=== PATIENT | female | born 1995 | race Caucasian/White ===

== ENCOUNTER → 2017-11-09 15:03 | Outpatient (CLI) | payer OTHER, SELFPAY ==
[2017-11-09 15:26] LABS: Add Manual Diff / Slide Review NO; Basophils Percent Auto 0.5 % (0-2); Eosinophils Percent Auto 2.6 % (2-4); Hematocrit 42.5 % (36-46); Hemoglobin 14.5 g/dL (12.0-16.0); Lymphocytes Percent Auto 22.4 % (25-40); Mean Corpuscular HGB Conc 34.1 % (30-36); Mean Corpuscular Hemoglobin 27.9 PG (26-34); Mean Corpuscular Volume 81.9 fL (80-100); Monocytes Percent Auto 7.1 % (3-14); Neutrophils Absolute Auto 7300 /uL (3000-5900); Neutrophils Percent Auto 67.4 % (50-75); Platelet Count 281 X10^3/uL (150-400); Red Cell Distribution Width 14.3 % (11.6-14.8); White Blood Cell Count 10.8 X10^3/uL (4.5-11.0)
[2017-11-09 15:54] LABS: Alanine Aminotransferase 31 IU/L (9-52); Albumin Globulin Ratio 1.1 (1.0-2.8); Alkaline Phosphatase 96 U/L (38-126); Aspartate Aminotransferase 25 IU/L (14-36); Bilirubin Total 0.6 mg/dL (0.2-1.3); Bilirubin Unconjugated 0.4 mg/dL (0.0-1.1); Globulin 3.6 g/dL (1.7-4.1); HEMOLYSIS < 15 (0-50); Total Protein 7.6 g/dL (6.3-8.2)
[2017-11-09 16:24] LABS: Thyroid Stimulating Hormone 1.68 uIU/mL (0.47-4.68)
== END ==
PROVIDERS: PCP Family Medicine; Visit Provider Internal Medicine
DX: M25.532 Pain in left wrist (principal); R94.5 Abnormal results of liver function studies
CPT/HCPCS: 36415; 80076; 84443; 85025

== ENCOUNTER → 2018-05-14 16:16 | Outpatient (CLI) | payer OTHER, SELFPAY ==
--- NOTE | 2018-05-14 16:17 | DI.US.S_ITS ---
PROCEDURE: US OB <= 14 WEEKS FETUS INDICATIONS: Dating for OUTSIDE/PRIOR DATING DATA: Last menstrual period (LMP): 03/19/18. LMP-based estimated date of delivery (DAMIEN): 12/24/18. First dating scan (date and location): 05/14/18. Estimated date of delivery (DAMIEN) from first dating scan: 12/20/18. TECHNIQUE: Real-time scanning was performed of the fetus and maternal pelvic organs, with image documentation. Endovaginal scanning was also performed to better visualize the fetus and maternal ovaries. COMPARISON: None. FINDINGS: Embryo: Alleman-rump length measures 2 cm corresponding to 8 weeks 4 days. Heart rate measures 165 beats per minute. Measurement variability in dating: +/- 4 weeks by LMP, +/- 7 days by mean sac diameter (use before 6 weeks gestation if crown-rump length not able to be measured), +/- 5 days by crown-rump length (up to 8 weeks 6 days gestation), +/- 7 days by crown-rump length (up to 13 weeks 6 days gestation). Maternal organs: Ovaries normal limits, with right corpus luteal cyst measuring roughly 18 mm. Limited images through the kidneys demonstrate no hydronephrosis. IMPRESSION: 8 week 4 day single living IUP. Dictated by: Derick Horne [facility] Interpreted: Kamaljit Boggs MD on 05/14/2018 at 17:08 Approved by: Kamaljit Boggs M.D. on 05/14/2018 at 18:21
== END ==
PROVIDERS: PCP Family Medicine; Visit Provider Family Medicine
DX: Z34.91 Encounter for supervision of normal pregnancy, unspecified, first trimester (principal); Z3A.08 8 weeks gestation of pregnancy
CPT/HCPCS: 76801; 76817

== ENCOUNTER → 2018-05-30 11:04 | Outpatient (CLI) | payer OTHER, SELFPAY ==
--- NOTE | 2018-05-30 13:38 | DI.US.S_ITS ---
PROCEDURE: US OB <= 14 WEEKS FETUS INDICATIONS: failed termination OUTSIDE/PRIOR DATING DATA: Last menstrual period (LMP): 03/24/18. LMP-based estimated date of delivery (DAMIEN): 12/24/18. First dating scan (date and location): 05/14/18. Estimated date of delivery (DAMIEN) from first dating scan: 12/20/18. TECHNIQUE: Real-time scanning was performed of the fetus and maternal pelvic organs, with image documentation. Endovaginal scanning was also performed to better visualize the fetus and maternal ovaries. COMPARISON: [facility], , OB <= 14 WEEKS FETUS, 05/14/2018, 16:30. FINDINGS: Embryo: There is a single living intrauterine gestation with heart rate 153 beats per minute, and with a crown-rump length of 3.9 cm that correlates with a gestational age of 10 weeks 5 days. By first OB ultrasound current gestational age is 10 weeks 6 days and therefore there has been appropriate interval growth. Measurement variability in dating: +/- 4 weeks by LMP, +/- 7 days by mean sac diameter (use before 6 weeks gestation if crown-rump length not able to be measured), +/- 5 days by crown-rump length (up to 8 weeks 6 days gestation), +/- 7 days by crown-rump length (up to 13 weeks 6 days gestation). Maternal organs: Ovaries normal considering gestational status. Limited images through the kidneys demonstrate no hydronephrosis. IMPRESSION: Single living intrauterine gestation with appropriate interval growth and heart rate observed. Delivery date is projected to be centered on 12/20/18. Dictated by: Boris Vargas M.D. on 05/30/2018 at 16:09 Approved by: Boris Vargas M.D. on 05/30/2018 at 16:11
== END ==
PROVIDERS: PCP Family Medicine; Visit Provider Family Medicine
DX: O07.4 Failed attempted termination of pregnancy without complication (principal); Z3A.10 10 weeks gestation of pregnancy
CPT/HCPCS: 76801

== ENCOUNTER 2018-06-03 13:22 | Day surgery (SDC) | payer OTHER, SELFPAY ==
--- NOTE | 2018-06-03 | PATH_ITS ---
[facility] Accession Number: [id number] . 01 Material submitted: . PRODUCTS OF CONCEPTION . 02 Diagnosis: Products of Conception: Disrupted fetus with heel-toe length of 0.6 cm (expected for a gestational age of 10-12 weeks). Fragmented placental tissue with no diagnostic abnormailty, including no viral cytopathic effect. [facility] . 02 Electronically signed: . Aldair Bray MD, PhD, Pathologist NPI- [id number] . 01 Gross description: . Received in formalin, labeled products of conception, are multiple fragments of red-brown spongy hemorrhagic tissue (13.8 x 5.2 x 3.2 cm in aggregate) containing multiple fragmented developing parts (8 grams, 4.8 x 3.6 x 1.2 cm in aggregate) with a foot length of 0.6 cm. [employer] tissue submitted in cassettes A1-A4. ([id number]) /MRV . 02 Pathologist provided ICD-10: O04.80 . 02 CPT . 616361 Performed at: 01 [facility] [address], [place], [place] [id number] MD Ector Garcia MD Phone: [phone] Performed at: 02 [facility] [address] [place], [place] [id number] MD Sharonda Kinsey MD Phone: [phone]
[2018-06-03 13:39] VITALS: BP 102/64; PULSE 69; RESP 16; TEMP 36.6; O2SAT 98; BMI 35.7
[2018-06-03] MEDS: LACTATED RINGERS 1,000 ML 42 ML IV (13:46)
--- NOTE | 2018-06-03 14:12 | PM.PREOP ---
Pre-operative Note Interval Note History & Physical reviewed/Exam performed by Physician: Yes Changes to H&P: No
--- NOTE | 2018-06-03 14:28 | SUR.OPER ---
Lithotomy on padded OR bed, head on pillow, arms secured on padded arm boards at <90 degrees abduction. Legs secured in padded yellow fins stirrups.
--- NOTE | 2018-06-03 14:41 | PM.OP.1 ---
Operative Date/Time/Diagnoses Date of procedure: 06/03/18 Time of procedure: 14:41 Pre-op diagnosis: Incomplete Post-op diagnosis: same Procedure & Clinicians Procedure: Suction D and C Same procedure as scheduled: Yes Indications: Patient who underwent a medically induced who did not have completion of her Surgeon: Susan Hemphill Click Yes if Unassisted: Yes Anesthesia Type: General Operative Notes Findings: Moderate amount of retained products of conception Closure Type: not applicable Specimen(s): other (Uterine contents) Estimated Blood Loss (mL): 20 Blood products transfused: none Procedure in detail: Patient was brought to the operating room where she underwent general anesthesia. [facility] She was prepped and draped in the usual sterile fashion. Her bladder was drained with an in-and out catheter. A check system was reviewed with the staff in the room. Warming was with blankets and no pulsatile stockings were indicated due to the short nature of the procedure. No antibiotics were indicated. A single-tooth tenaculum was placed on the anterior lip of the cervix. The cervix was dilated to a 10. Hegar dilator. The #9 suction curette was placed into the uterus and tissue removed. A sharp curettage was performed followed by a repeat suction curettage. Adequate hemostasis was noted. The patient went to the recovery room in good condition. Counts of instruments and sponges were correct. Complications: none Condition: stable Disposition: same day surgery Plan for aftercare: Follow-up in 2 weeks
[2018-06-03 14:44] VITALS: BP 119/71; PULSE 88; RESP 16; TEMP 36.8; O2SAT 95
--- NOTE | 2018-06-03 14:45 | P.OP_ITS ---
Operative Date/Time/Diagnoses Date of procedure: 06/03/18 Time of procedure: 14:41 Pre-op diagnosis: Incomplete Post-op diagnosis: same Procedure & Clinicians Procedure: Suction D and C Same procedure as scheduled: Yes Indications: Patient who underwent a medically induced who did not have completion of her Surgeon: Susan Hemphill Click Yes if Unassisted: Yes Anesthesia Type: General Operative Notes Findings: Moderate amount of retained products of conception Closure Type: not applicable Specimen(s): other (Uterine contents) Estimated Blood Loss (mL): 20 Blood products transfused: none Procedure in detail: Patient was brought to the operating room where she underwent general anesthesia. [facility] She was prepped and draped in the usual sterile fashion. Her bladder was drained with an in-and out catheter. A check system was reviewed with the staff in the room. Warming was with blankets and no pulsatile stockings were indicated due to the short nature of the procedure. No antibiotics were indicated. A single- tooth tenaculum was placed on the anterior lip of the cervix. The cervix was dilated to a 10. Hegar dilator. The #9 suction curette was placed into the uterus and tissue removed. A sharp curettage was performed followed by a repeat suction curettage. Adequate hemostasis was noted. The patient went to the recovery room in good condition. Counts of instruments and sponges were correct. Complications: none Condition: stable Disposition: same day surgery Plan for aftercare: Follow-up in 2 weeks
[2018-06-03 14:50] VITALS: BP 124/83; PULSE 106; RESP 16; O2SAT 95
[2018-06-03 14:52] VITALS: BP 104/71; PULSE 77; RESP 17; O2SAT 95
[2018-06-03 15:14] VITALS: BP 117/71; PULSE 68; RESP 16; TEMP 36.6; O2SAT 99
== END 2018-06-03 15:24 | disposition home or self-care (01) ==
PROVIDERS: PCP Family Medicine; Visit Provider Specialist
PROC: (CPT 58120; principal; 2018-06-03 14:30)
DX: O04.89 (Induced) termination of pregnancy with other complications (principal); Z3A.10 10 weeks gestation of pregnancy
CPT/HCPCS: 59812; 88304; J1885; J2250; J2405; J2704; J3010

== ENCOUNTER → 2018-08-21 11:35 | Outpatient (CLI) | payer OTHER, SELFPAY ==
[2018-08-21 12:15] LABS: Influenza A and B by PCR Rapid Negative (Negative)
== END ==
PROVIDERS: PCP Family Medicine; Visit Provider Registered Nurse
DX: J06.9 Acute upper respiratory infection, unspecified (principal)
CPT/HCPCS: 87400

== ENCOUNTER 2018-09-11 14:51 | Emergency (ER) | payer OTHER, SELFPAY ==
[2018-09-11 15:00] VITALS: BP 114/76; PULSE 85; RESP 20; TEMP 36.6; O2SAT 98; BMI 31.6
--- NOTE | 2018-09-11 15:04 | DI.RAD.S_ITS ---
PROCEDURE: XR ANKLE RT MIN 3V INDICATIONS: injury, pain TECHNIQUE: 3 views of the ankle were acquired. COMPARISON: None. FINDINGS: Bones: No fractures or dislocations. Ankle mortise is normally aligned. No suspicious bony lesions. Soft tissues: No tibiotalar joint effusion. Achilles tendon appears normal. IMPRESSION: No fracture. No osseous lesion. If symptoms and/or clinical suspicion for pathology persists, further assessment with repeat radiographs (7-10 days) or advanced imaging (e.g. CT, MRI or bone scan) may be helpful. Dictated by: Philomena Venegas MD, PhD on 09/11/2018 at 15:37 Approved by: Philomena Venegas MD, PhD on 09/11/2018 at 15:38
--- NOTE | 2018-09-11 15:04 | DI.RAD.S_ITS ---
PROCEDURE: XR FOOT RT MIN 3V INDICATIONS: injury, pain TECHNIQUE: 3 views of the foot were acquired. COMPARISON: None. FINDINGS: Bones: No fractures or dislocations. No suspicious bony lesions. Soft tissues: No tibiotalar joint effusion. Achilles tendon appears normal. IMPRESSION: No fracture. No osseous lesion. If symptoms and/or clinical suspicion for pathology persists, further assessment with repeat radiographs (7-10 days) or advanced imaging (e.g. CT, MRI or bone scan) may be helpful. Dictated by: Philomena Venegas MD, PhD on 09/11/2018 at 15:39 Approved by: Philomena Venegas MD, PhD on 09/11/2018 at 15:40
--- NOTE | 2018-09-11 17:59 | ED.LOWEXIN ---
HPI - Extremity Injury (Lower) <Sarahi Porter PA-C - Last Filed: 09/11/18 22:19> General Chief Complaint: Extremity Injury, Lower Stated Complaint: hurt rt ankle Time Seen by Provider: 09/11/18 15:06 Source: patient Mode of arrival: wheelchair Limitations: no limitations History of Present Illness HPI Narrative: This 22-year-old female states she was the out of the store holding her daughter in 1 hand and a 12 pack of soda in the other when she started to trip and rolled her right ankle onto her foot twice. She states that she twisted this at an awkward angle, but did not fall, and has had pain since especially with trying to bear weight. She denies any pain elsewhere in the leg or any other injury. she took some ibuprofen afterwards. She denies possibility of Related Data Previous Rx's Medication Instructions Recorded ibuprofen 800 mg tablet 800 mg PO TID PRN #15 tab 05/16/18 sertraline 25 mg tablet 50 mg PO DAILY #60 tab 08/05/18 bupropion HCl 75 mg tablet 75 mg PO BID #60 tab 08/21/18 Allergies Allergy/AdvReac Type Severity Reaction Status Date / Time latex [LATEX] Allergy Mild rash Verified 08/21/18 11:08 Review of Systems <Sarahi Porter PA-C - Last Filed: 09/11/18 22:19> Review of Systems ROS Unobtainable: All systems reviewed & are unremarkable except as noted in HPI and below PFSH <Sarahi Porter PA-C - Last Filed: 09/11/18 22:19> Medical History 1 para 1 (Resolved) Normal Papanicolaou smear (Resolved) Surgical History Anesthesia (Resolved) History of third molar tooth extraction (Resolved) Family History (Updated 05/31/17 @ 00:00 by Conversion Provider) Father Age: 60 Diabetes mellitus Mother Age: 46 Bipolar disorder with depression Sister Age: 26 Bipolar 1 disorder Brother No problems noted. Social History household members: family Smoking Status: Never smoker Family History (Updated 05/31/17 @ 00:00 by Conversion Provider) Father Age: 60 Diabetes mellitus Mother Age: 46 Bipolar disorder with depression Sister Age: 26 Bipolar 1 disorder Brother No problems noted. Social History household members: family Smoking Status: Never smoker Exam <Sarahi Porter PA-C - Last Filed: 09/11/18 22:19> Narrative Exam Narrative: GENERAL APPEARANCE: Patient sitting comfortably, in no distress. LUNGS: Clear to auscultation bilaterally. HEART: Rate and rhythm regular without murmur, normal S1 and S2, no S3 or S4. MUSCULOSKELETAL: Right ankle is mildly tender over the Achilles and inferior to the lateral malleolus. Achilles is intact by palpation. full range of motion of the ankle with mild tenderness at endpoints. Exquisitely tender over all of the metatarsals, mainly mid to the distal. She is able to plantar flex and dorsiflex the toes. NEUROVASCULAR: right lower extremity sensation is grossly intact, pedal pulses intact, toes warm and pink Initial Vital Signs Initial Vital Signs: Vital Signs Temperature 97.8 F 09/11/18 15:00 Pulse Rate 85 09/11/18 15:00 Respiratory Rate 20 09/11/18 15:00 Blood Pressure 114/76 09/11/18 15:00 Pulse Oximetry 98 09/11/18 15:00 <Terry Cobos DO - Last Filed: 09/11/18 23:22> Initial Vital Signs Initial Vital Signs: Vital Signs Temperature 97.8 F 09/11/18 15:00 Pulse Rate 85 09/11/18 15:00 Respiratory Rate 20 09/11/18 15:00 Blood Pressure 114/76 09/11/18 15:00 Pulse Oximetry 98 09/11/18 15:00 Course <Sarahi Porter PA-C - Last Filed: 09/11/18 22:19> Additional Information: The patient is not able to bear weight with a cast shoe, but much more comfortable with orthopedic boot and crutches. Advised no acute findings now on x-rays but she does need to follow up with PCP next week as she may need repeat x-rays not improving. Light duty until then. She is agreeable Orders Ordered: ED Orders 09/11/18 15:04 XR ankle RT min 3V Stat XR foot RT min 3V Stat Vital Signs - 8 hr 09/11/18 18:34 Temperature 99.1 F Pulse Rate 82 Respiratory Rate 19 Blood Pressure 111/56 L Pulse Oximetry 99 <Terry Cobos DO - Last Filed: 09/11/18 23:22> Orders Ordered: ED Orders 09/11/18 15:04 XR ankle RT min 3V Stat XR foot RT min 3V Stat Vital Signs - 8 hr 09/11/18 18:34 Temperature 99.1 F Pulse Rate 82 Respiratory Rate 19 Blood Pressure 111/56 L Pulse Oximetry 99 MDM - Extremity Injury (Lower) <Sarahi Porter PA-C - Last Filed: 09/11/18 22:19> Imaging Data foot/ankle: Radiologist's impression: Ortega Ramey 22 F [address] [address] XRay Report Signed Patient: Ortega Ramey MMR#: [id number] : 1995Acct:[id number] Age/Sex: te of Service: 09/11/18 Loc: ED Accession Number: [id number] Procedure: XR ankle RT min 3V Ordering Provider: Zeinab Newell D.O. PROCEDURE: XR ANKLE RT MIN 3V INDICATIONS: injury, pain TECHNIQUE: 3 views of the ankle were acquired. COMPARISON: None. FINDINGS: Bones: No fractures or dislocations. Ankle mortise is normally aligned. No suspicious bony lesions. Soft tissues: No tibiotalar joint effusion. Achilles tendon appears normal. IMPRESSION: No fracture. No osseous lesion. If symptoms and/or clinical suspicion for pathology persists, further assessment with repeat radiographs (7-10 days) or advanced imaging (e.g. CT, MRI or bone scan) may be helpful. Dictated by: Philomena Venegas MD, PhD on 09/11/2018 at 15:37 Approved by: Philomena Venegas MD, PhD on 09/11/2018 at 15:[address] [address] XRay Report Signed Patient: Ortega Ramey MMR#: [id number] : 1995Acct:[id number] Age/Sex: / FDate of Service: 09/11/18 Loc: ED Accession Number: [id number] Procedure: XR foot RT min 3V Ordering Provider: Zeinab Newell D.O. PROCEDURE: XR FOOT RT MIN 3V INDICATIONS: injury, pain TECHNIQUE: 3 views of the foot were acquired. COMPARISON: None. FINDINGS: Bones: No fractures or dislocations. No suspicious bony lesions. Soft tissues: No tibiotalar joint effusion. Achilles tendon appears normal. IMPRESSION: No fracture. No osseous lesion. If symptoms and/or clinical suspicion for pathology persists, further assessment with repeat radiographs (7-10 days) or advanced imaging (e.g. CT, MRI or bone scan) may be helpful. Dictated by: Philomena Venegas MD, PhD on 09/11/2018 at 15:39 Approved by: Philomena Venegas MD, PhD on 09/11/2018 at 15:40 Discharge Plan Departure Patient Disposition: Home Clinical Impression: Foot sprain Qualifiers: Encounter type: initial encounter Laterality: right Qualified Code(s): S93.601A - Unspecified sprain of right foot, initial encounter Ankle sprain Qualifiers: Encounter type: initial encounter Involved ligament of ankle: unspecified ligament Laterality: right Qualified Code(s): S93.401A - Sprain of unspecified ligament of right ankle, initial encounter Discharge Date/Time: 09/11/18 18:36 Interventions: ED Discharge Assessment Last Done: 09/11/18 18:34 Instructions: DI for Ankle Sprain, DI for Foot Sprain Activity Restrictions/Additional Instructions: Please return if you have any acutely worsening symptoms. Please continue ibuprofen 800 mg every 8 hours and you can add Tylenol in addition as needed. Please wear the walking boot whenever you are bearing weight and also use the crutches as needed. Please follow up with your PCP next week. As we talked about, you may need repeat x-rays if you are not improving (sometimes broken bones do not show up on initial x-rays). Please avoid doing work that you won't be able to do on the crutches easily Prescriptions: No Action sertraline 25 mg tablet 50 mg PO DAILY Qty: 60 RF: 1 ibuprofen 800 mg tablet 800 mg PO TID PRN (Reason: pain) Qty: 15 RF: 0 bupropion HCl 75 mg tablet 75 mg PO BID Qty: 60 RF: 1 Referrals: Brianna Laws DO [Primary Care Provider] - Stand Alone Forms: Work Release Note <Terry Cobos DO - Last Filed: 09/11/18 23:22> Cosign ED Attending Cosignature Attestation: I was available for consultation during this patient's emergency department encounter
--- NOTE | 2018-09-11 18:02 | ED_ITS ---
HPI - Extremity Injury (Lower) <Sarahi Porter PA-C - Last Filed: 09/11/18 22:19> General Chief Complaint: Extremity Injury, Lower Stated Complaint: hurt rt ankle Time Seen by Provider: 09/11/18 15:06 Source: patient Mode of arrival: wheelchair Limitations: no limitations History of Present Illness HPI Narrative: This 22-year-old female states she was the out of the store holding her daughter in 1 hand and a 12 pack of soda in the other when she started to trip and rolled her right ankle onto her foot twice. She states that she twisted this at an awkward angle, but did not fall, and has had pain since especially with trying to bear weight. She denies any pain elsewhere in the leg or any other injury. she took some ibuprofen afterwards. She denies possibility of Related Data Previous Rx's Medication Instructions Recorded ibuprofen 800 mg tablet 800 mg PO TID PRN #15 tab 05/16/18 sertraline 25 mg tablet 50 mg PO DAILY #60 tab 08/05/18 bupropion HCl 75 mg tablet 75 mg PO BID #60 tab 08/21/18 Allergies Allergy/AdvReac Type Severity Reaction Status Date / Time latex [LATEX] Allergy Mild rash Verified 08/21/18 11:08 Review of Systems <Sarahi Porter PA-C - Last Filed: 09/11/18 22:19> Review of Systems ROS Unobtainable: All systems reviewed & are unremarkable except as noted in HPI and below PFSH <Sarahi Porter PA-C - Last Filed: 09/11/18 22:19> Medical History 1 para 1 (Resolved) Normal Papanicolaou smear (Resolved) Surgical History Anesthesia (Resolved) History of third molar tooth extraction (Resolved) Family History (Updated 05/31/17 @ 00:00 by Conversion Provider) Father Age: 60 Diabetes mellitus Mother Age: 46 Bipolar disorder with depression Sister Age: 26 Bipolar 1 disorder Brother No problems noted. Social History household members: family Smoking Status: Never smoker Family History (Updated 05/31/17 @ 00:00 by Conversion Provider) Father Age: 60 Diabetes mellitus Mother Age: 46 Bipolar disorder with depression Sister Age: 26 Bipolar 1 disorder Brother No problems noted. Social History household members: family Smoking Status: Never smoker Exam <Sarahi Porter PA-C - Last Filed: 09/11/18 22:19> Narrative Exam Narrative: GENERAL APPEARANCE: Patient sitting comfortably, in no distress. LUNGS: Clear to auscultation bilaterally. HEART: Rate and rhythm regular without murmur, normal S1 and S2, no S3 or S4. MUSCULOSKELETAL: Right ankle is mildly tender over the Achilles and inferior to the lateral malleolus. Achilles is intact by palpation. full range of motion of the ankle with mild tenderness at endpoints. Exquisitely tender over all of the metatarsals, mainly mid to the distal. She is able to plantar flex and dorsiflex the toes. NEUROVASCULAR: right lower extremity sensation is grossly intact, pedal pulses intact, toes warm and pink Initial Vital Signs Initial Vital Signs: Vital Signs Temperature 97.8 F 09/11/18 15:00 Pulse Rate 85 09/11/18 15:00 Respiratory Rate 20 09/11/18 15:00 Blood Pressure 114/76 09/11/18 15:00 Pulse Oximetry 98 09/11/18 15:00 <Terry Cobos DO - Last Filed: 09/11/18 23:22> Initial Vital Signs Initial Vital Signs: Vital Signs Temperature 97.8 F 09/11/18 15:00 Pulse Rate 85 09/11/18 15:00 Respiratory Rate 20 09/11/18 15:00 Blood Pressure 114/76 09/11/18 15:00 Pulse Oximetry 98 09/11/18 15:00 Course <Sarahi Porter PA-C - Last Filed: 09/11/18 22:19> Additional Information: The patient is not able to bear weight with a cast shoe, but much more comfortable with orthopedic boot and crutches. Advised no acute findings now on x-rays but she does need to follow up with PCP next week as she may need repeat x-rays not improving. Light duty until then. She is agreeable Orders Ordered: ED Orders 09/11/18 15:04 XR ankle RT min 3V Stat XR foot RT min 3V Stat Vital Signs - 8 hr 09/11/18 18:34 Temperature 99.1 F Pulse Rate 82 Respiratory Rate 19 Blood Pressure 111/56 L Pulse Oximetry 99 <Terry Cobos DO - Last Filed: 09/11/18 23:22> Orders Ordered: ED Orders 09/11/18 15:04 XR ankle RT min 3V Stat XR foot RT min 3V Stat Vital Signs - 8 hr 09/11/18 18:34 Temperature 99.1 F Pulse Rate 82 Respiratory Rate 19 Blood Pressure 111/56 L Pulse Oximetry 99 MDM - Extremity Injury (Lower) <Sarahi Porter PA-C - Last Filed: 09/11/18 22:19> Imaging Data foot/ankle: Radiologist's impression: Ortega Ramey 22 F [address] [address] XRay Report Signed Patient: Ortega Ramey MMR#: [id number] : 1995Acct:[id number] Age/Sex: te of Service: 09/11/18 Loc: ED Accession Number: [id number] Procedure: XR ankle RT min 3V Ordering Provider: Zeinab Newell D.O. PROCEDURE: XR ANKLE RT MIN 3V INDICATIONS: injury, pain TECHNIQUE: 3 views of the ankle were acquired. COMPARISON: None. FINDINGS: Bones: No fractures or dislocations. Ankle mortise is normally aligned. No suspicious bony lesions. Soft tissues: No tibiotalar joint effusion. Achilles tendon appears normal. IMPRESSION: No fracture. No osseous lesion. If symptoms and/or clinical suspicion for pathology persists, further assessment with repeat radiographs (7-10 days) or advanced imaging (e.g. CT, MRI or bone scan) may be helpful. Dictated by: Philomena Venegas MD, PhD on 09/11/2018 at 15:37 Approved by: Philomena Venegas MD, PhD on 09/11/2018 at 15:[address] [address] XRay Report Signed Patient: Ortega Ramey MMR#: [id number] : 1995Acct:[id number] Age/Sex: / FDate of Service: 09/11/18 Loc: ED Accession Number: [id number] Procedure: XR foot RT min 3V Ordering Provider: Zeinab Newell D.O. PROCEDURE: XR FOOT RT MIN 3V INDICATIONS: injury, pain TECHNIQUE: 3 views of the foot were acquired. COMPARISON: None. FINDINGS: Bones: No fractures or dislocations. No suspicious bony lesions. Soft tissues: No tibiotalar joint effusion. Achilles tendon appears normal. IMPRESSION: No fracture. No osseous lesion. If symptoms and/or clinical suspici on for pathology persists, further assessment with repeat radiographs (7-10 days) or advanced imaging (e.g. CT, MRI or bone scan) may be helpful. Dictated by: Philomena Venegas MD, PhD on 09/11/2018 at 15:39 Approved by: Philomena Venegas MD, PhD on 09/11/2018 at 15:40 Discharge Plan Departure Patient Disposition: Home Clinical Impression: Foot sprain Qualifiers: Encounter type: initial encounter Laterality: right Qualified Code(s): S93.601A - Unspecified sprain of right foot, initial encounter Ankle sprain Qualifiers: Encounter type: initial encounter Involved ligament of ankle: unspecified ligament Laterality: right Qualified Code(s): S93.401A - Sprain of unspecified ligament of right ankle, initial encounter Discharge Date/Time: 09/11/18 18:36 Interventions: ED Discharge Assessment Last Done: 09/11/18 18:34 Instructions: DI for Ankle Sprain, DI for Foot Sprain Activity Restrictions/Additional Instructions: Please return if you have any acutely worsening symptoms. Please continue ibuprofen 800 mg every 8 hours and you can add Tylenol in addition as needed. Please wear the walking boot whenever you are bearing weight and also use the crutches as needed. Please follow up with your PCP next week. As we talked about, you may need repeat x-rays if you are not improving (sometimes broken bones do not show up on initial x-rays). Please avoid doing work that you won't be able to do on the crutches easily Prescriptions: No Action sertraline 25 mg tablet 50 mg PO DAILY Qty: 60 RF: 1 ibuprofen 800 mg tablet 800 mg PO TID PRN (Reason: pain) Qty: 15 RF: 0 bupropion HCl 75 mg tablet 75 mg PO BID Qty: 60 RF: 1 Referrals: Brianna Laws DO [Primary Care Provider] - Stand Alone Forms: Work Release Note <Terry Cobos DO - Last Filed: 09/11/18 23:22> Cosign ED Attending Cosignature Attestation: I was available for consultation during this patient's emergency department encounter
[2018-09-11 18:34] VITALS: BP 111/56; PULSE 82; RESP 19; TEMP 37.3; O2SAT 99
== END 2018-09-11 18:36 | disposition home or self-care (01) ==
PROVIDERS: Emergency Provider Internal Medicine; PCP Family Medicine
DX: S93.401A Sprain of unspecified ligament of right ankle, initial encounter (principal)
CPT/HCPCS: 73610; 73630; 99283

== ENCOUNTER 2019-02-20 10:23 | Emergency (ER) | payer OTHER, SELFPAY ==
[2019-02-20 10:30] VITALS: BP 134/91; PULSE 82; RESP 18; TEMP 36.5; O2SAT 99
--- NOTE | 2019-02-20 11:22 | DI.US.S_ITS ---
PROCEDURE: US OB <= 14 WEEKS FETUS INDICATIONS: 7 WK PREG, ABD AND FLANK PAIN OUTSIDE/PRIOR DATING DATA: Last menstrual period (LMP): 01/02/2019. LMP-based estimated date of delivery (DAMIEN): 10/08/1018. First dating scan (date and location): This exam. Estimated date of delivery (DAMIEN) from first dating scan: 10/08/2019. TECHNIQUE: Real-time scanning was performed of the fetus and maternal pelvic organs, with image documentation. COMPARISON: [facility], OB <= 14 WEEKS FETUS, 05/14/2018, 16:30. FINDINGS: Embryo: There is an intrauterine gestational sac with pole. cardiac activity is present with heart rate 158 bpm. Based on the crown-rump length, the estimated gestational age is 7 weeks 1 day corresponding to DAMIEN 10/08/2019. Normal-appearing yolk sac is present. No subchorionic bleed. Cervix is closed measuring 3.2 cm long. Measurement variability in dating: +/- 4 weeks by LMP, +/- 7 days by mean sac diameter (use before 6 weeks gestation if crown-rump length not able to be measured), +/- 5 days by crown-rump length (up to 8 weeks 6 days gestation), +/- 7 days by crown-rump length (up to 13 weeks 6 days gestation). Maternal organs: Ovaries are grossly normal. Limited images through the kidneys demonstrate no hydronephrosis. IMPRESSION: 1. A single living intrauterine gestation with an estimated gestational age of 7 weeks 1 day corresponding to ultrasound DAMIEN of 10/10/2019. 2. No abnormality is seen on ultrasound. Dictated by: Valerie Chirinos M.D. on 02/20/2019 at 12:10 Approved by: Valerie Chirinos M.D. on 02/20/2019 at 12:17
--- NOTE | 2019-02-20 11:41 | ED.ABDPAIN ---
HPI - Abdominal Pain <MARCIO Roth-BC - Last Filed: 02/20/19 15:43> General Chief Complaint: Abdominal Pain Stated Complaint: pain in right side Time Seen by Provider: 02/20/19 10:52 Source: patient Mode of arrival: Ambulatory Limitations: no limitations History of Present Illness HPI narrative: The patient is a 23-year-old female nonsmoker present with a complaint of right upper quadrant pain, right. She states she she started yesterday and she had a difficulty sleeping due to this. She states that she has already had a cholecystectomy in the beginning of 2017. She denies any dysuria urgency frequency. She denies any lower abdominal cramping. She has not had an OB visit yet. She denies any fever, but complains of chills. She complains of nausea and vomiting, but states that might be due to her . Related Data Home Medications Medication Instructions Recorded Confirmed PNV cmb#95-ferrous fumarate-FA 1 tab PO DAILY 02/20/19 02/20/19 [] Vitamin B-6 1 tab PO DAILY 02/20/19 02/20/19 doxylamine succinate [Unisom 12.5 mg PO BEDTIME PRN 02/20/19 02/20/19 (doxylamine)] Previous Rx's Medication Instructions Recorded bupropion HCl 150 mg tablet,12 hr 150 mg PO DAILY #30 each 09/19/18 sustained-release sertraline 25 mg tablet 50 mg PO DAILY #180 tab 10/09/18 ondansetron 4 mg PO Q6H PRN #20 tab 02/20/19 Allergies Allergy/AdvReac Type Severity Reaction Status Date / Time latex [LATEX] Allergy Mild rash Verified 08/21/18 11:08 Review of Systems <STEVEN RothBC - Last Filed: 02/20/19 15:43> Review of Systems Narrative: GENERAL: See HPI HEENT: Denies sinus pain, ear pain, sore throat, difficulty swallowing, dizziness. RESPIRATORY: See HPI CARDIOVASCULAR: Denies chest pain, palpitations, orthopnea, edema, GASTROINTESTINAL: See HPI : Denies dysuria, frequency, incontinence, hematuria, urinary retention. MUSCULOSKELETAL: denies weakness, joint pain, or bony pain SKIN: Denies rash, skin lesions, or other NEUROLOGIC: Denies weakness, headache, numbness, change in speech, confusion, seizures, incoordination. PSYCHIATRIC: No concerning psychosocial issues. 12 point review of systems is negative except for those stated above PFSH <Vianca RamírezFRANKO - Last Filed: 02/20/19 15:43> Family History (Updated 05/31/17 @ 00:00 by Conversion Provider) Father Age: 60 Diabetes mellitus Mother Age: 46 Bipolar disorder with depression Sister Age: 26 Bipolar 1 disorder Brother No problems noted. Social History household members: family Smoking Status: Never smoker Exam <Vianca KlineFRANKO guillory - Last Filed: 02/20/19 15:43> Narrative Exam Narrative: GENERAL: This is a well-nourished, well-developed patient, appears uncomfortable wearing a HEAD: Atraumatic. Normocephalic. No temporal or scalp tenderness. EYES: Pupils equal round and reactive. Extraocular motions intact. No scleral icterus. No injection or drainage. ENT: Nose without bleeding, purulent drainage or septal hematoma. Throat without erythema, tonsillar hypertrophy or exudate. Uvula midline. Airway patent. Dry mucous membranes noted. NECK: Trachea midline. No JVD or lymphadenopathy. Supple, nontender, no meningeal signs. CARDIOVASCULAR: Regular rate and rhythm without murmurs, gallops, or rubs. RESPIRATORY: Clear to auscultation. Breath sounds equal bilaterally. No wheezes, rales, or rhonchi. Dry cough on exam. No retractions. No stridor. GASTROINTESTINAL: Abdomen soft, non-tender, nondistended. No hepato-splenomegaly, or palpable masses. No guarding. Active bowel sounds all 4 quadrants. EXTREMITIES: No clubbing, cyanosis, or edema. No joint tenderness, effusion, or edema noted. BACK: Nontender without deformity or crepitance. No flank tenderness. NEURO: AOx3. SKIN: No rash or erythema. Initial Vital Signs Initial Vital Signs: Vital Signs Temperature 97.7 F 02/20/19 10:30 Pulse Rate 82 02/20/19 10:30 Respiratory Rate 18 02/20/19 10:30 Blood Pressure 134/91 H 02/20/19 10:30 Pulse Oximetry 99 02/20/19 10:30 <Terry Cobos DO - Last Filed: 02/20/19 17:35> Initial Vital Signs Initial Vital Signs: Vital Signs Temperature 97.7 F 02/20/19 10:30 Pulse Rate 82 02/20/19 10:30 Respiratory Rate 18 02/20/19 10:30 Blood Pressure 134/91 H 02/20/19 10:30 Pulse Oximetry 99 02/20/19 10:30 Course <MARCIO Roth-BC - Last Filed: 02/20/19 15:43> Orders Ordered: ED Orders 02/20/19 11:22 US OB <= 14 weeks fetus Stat 02/20/19 12:00 ABO RH Type Stat Amylase Stat Complete Blood Count AUTO DIFF Stat Comprehensive Metabolic Panel Stat HCG Quantitative Stat Lipase Stat Test Serum,Qual Stat Discontinued Medications Acetaminophen (Tylenol) 975 mg PO NOW ONE Stop: 02/20/19 13:26 Last Admin: 02/20/19 13:46 Dose: 975 mg Documented by: AARON Lidocaine (Lidoderm) 1 each TOP NOW ONE Stop: 02/20/19 13:26 Last Admin: 02/20/19 13:47 Dose: 1 each Documented by: AARON Ondansetron HCl (Zofran Odt) 4 mg SL NOW ONE Stop: 02/20/19 11:51 Last Admin: 02/20/19 12:05 Dose: 4 mg Documented by: AARON Vital Signs Vital signs: Vital Signs - 8 hr 02/20/19 10:30 02/20/19 12:00 02/20/19 13:30 Temperature 97.7 F Pulse Rate 82 76 77 Respiratory Rate 18 16 16 Blood Pressure 134/91 H Blood Pressure [Right Arm] 112/76 105/73 Pulse Oximetry 99 98 99 <Terry Cobos DO - Last Filed: 02/20/19 17:35> Orders Ordered: ED Orders 02/20/19 11:22 US OB <= 14 weeks fetus Stat 02/20/19 12:00 ABO RH Type Stat Amylase Stat Complete Blood Count AUTO DIFF Stat Comprehensive Metabolic Panel Stat HCG Quantitative Stat Lipase Stat Test Serum,Qual Stat Discontinued Medications Acetaminophen (Tylenol) 975 mg PO NOW ONE Stop: 02/20/19 13:26 Last Admin: 02/20/19 13:46 Dose: 975 mg Documented by: AARON Lidocaine (Lidoderm) 1 each TOP NOW ONE Stop: 02/20/19 13:26 Last Admin: 02/20/19 13:47 Dose: 1 each Documented by: AARON Ondansetron HCl (Zofran Odt) 4 mg SL NOW ONE Stop: 02/20/19 11:51 Last Admin: 02/20/19 12:05 Dose: 4 mg Documented by: AARON Vital Signs Vital signs: Vital Signs - 8 hr 02/20/19 10:30 02/20/19 12:00 02/20/19 13:30 Temperature 97.7 F Pulse Rate 82 76 77 Respiratory Rate 18 16 16 Blood Pressure 134/91 H Blood Pressure [Right Arm] 112/76 105/73 Pulse Oximetry 99 98 99 MDM - Abdominal Pain <STEVEN Roth - Last Filed: 02/20/19 15:43> Lab Data Result diagrams: 02/20/19 12:00 02/20/19 12:00 Labs: Lab Results 02/20/19 02/20/19 02/20/19 Range/Units 12:00 12:00 12:00 WBC 11.0 (4.5-11.0) X10^3/uL RBC 5.13 (4.0-5.2) X10^6/uL Hgb 13.4 (12.0-16.0) g/dL Hct 41.2 (36-46) % MCV 80.2 (80-100) fL MCH 26.2 (26-34) PG MCHC 32.7 (30-36) % RDW 15.0 H (11.6-14.8) % Plt Count 295 (150-400) X10^3/uL Neut % (Auto) 64.0 (50-75) % Lymph % (Auto) 26.7 (25-40) % [place] % (Auto) 7.1 (3-14) % Eos % (Auto) 1.9 L (2-4) % Baso % (Auto) 0.3 (0-2) % Neut # (Auto) 7000 (4075-2209) /uL Lymph # (Auto) 2900 (5001-4526) /uL [place] # (Auto) 800 (0-900) /uL Eos # (Auto) 200 (0-450) /uL Baso # (Auto) 0 (0-100) /uL Sodium 140 (137-145) mmol/L Potassium 3.9 (3.4-5.1) mmol/L Chloride 103 (98-107) mmol/L Carbon Dioxide 26 (22-32) mmol/L BUN 12 (7-17) mg/dL Creatinine 0.60 (0.52-1.04) mg/dL Estimated GFR > 60.0 (>60) mL/min BUN/Creatinine Ratio 20.0 (6-22) Glucose 92 (70-100) mg/dL Calcium 9.4 (8.4-10.2) mg/dL Total Bilirubin 0.5 (0.2-1.3) mg/dL AST 27 (14-36) IU/L ALT 25 (9-52) IU/L Alkaline Phosphatase 80 (38-126) U/L Total Protein 7.5 (6.3-8.2) g/dL Albumin 4.0 (3.5-5.0) g/dL Globulin 3.5 (1.7-4.1) g/dL Albumin/Globulin Ratio 1.1 (1.0-2.8) Amylase 66 (30-110) U/L Lipase 30 (23-300) U/L HCG, Quant mIU/mL Serum , Qual Positive H (Negative) Blood Type 02/20/19 02/20/19 Range/Units 12:00 12:00 WBC (4.5-11.0) X10^3/uL RBC (4.0-5.2) X10^6/uL Hgb (12.0-16.0) g/dL Hct (36-46) % MCV (80-100) fL MCH (26-34) PG MCHC (30-36) % RDW (11.6-14.8) % Plt Count (150-400) X10^3/uL Neut % (Auto) (50-75) % Lymph % (Auto) (25-40) % [place] % (Auto) (3-14) % Eos % (Auto) (2-4) % Baso % (Auto) (0-2) % Neut # (Auto) (8014-6000) /uL Lymph # (Auto) (7038-5168) /uL [place] # (Auto) (0-900) /uL Eos # (Auto) (0-450) /uL Baso # (Auto) (0-100) /uL Sodium (137-145) mmol/L Potassium (3.4-5.1) mmol/L Chloride (98-107) mmol/L Carbon Dioxide (22-32) mmol/L BUN (7-17) mg/dL Creatinine (0.52-1.04) mg/dL Estimated GFR (>60) mL/min BUN/Creatinine Ratio (6-22) Glucose (70-100) mg/dL Calcium (8.4-10.2) mg/dL Total Bilirubin (0.2-1.3) mg/dL AST (14-36) IU/L ALT (9-52) IU/L Alkaline Phosphatase (38-126) U/L Total Protein (6.3-8.2) g/dL Albumin (3.5-5.0) g/dL Globulin (1.7-4.1) g/dL Albumin/Globulin Ratio (1.0-2.8) Amylase (30-110) U/L Lipase (23-300) U/L HCG, Quant 79362 mIU/mL Serum , Qual (Negative) Blood Type O Positive Point of care testing: Point of Care Testing Test Results Positive Urine Dip Bedside Urine Glucose Negative Bedside Urine Bilirubin - Negative Bedside Urine Ketone - Negative Urine Specific [place] 1.020 Bedside Urine Occult Blood - Negative Bedside Urine pH 6.0 Bedside Urine Protein +/- 15 Bedside Urine Urobilinogen - Negative Bedside Urine Nitrite - Negative Bedside Urine Leukocytes - Negative Esterase Imaging Data us: Radiologist's impression: [place] [address] Ultrasound Report Signed Patient: Ortega Ramey [facility]#: [id number] : 1995Acct:[id number] Age/Sex: 23 / FDate of Service: 02/20/19 Loc: ED Accession Number: [id number] Procedure: US OB <= 14 weeks fetus Ordering Provider: Vianca Ramírez-BC PROCEDURE: US OB <= 14 WEEKS FETUS INDICATIONS: 7 WK PREG, ABD AND FLANK PAIN OUTSIDE/PRIOR DATING DATA: Last menstrual period (LMP): 01/02/2019. LMP-based estimated date of delivery (DAMIEN): 10/08/1018. First dating scan (date and location): This exam. Estimated date of delivery (DAMIEN) from first dating scan: 10/08/2019. TECHNIQUE: Real-time scanning was performed of the fetus and maternal pelvic organs, with image documentation. COMPARISON: [facility], , OB <= 14 WEEKS FETUS, 05/14/2018, 16:30. FINDINGS: Embryo: There is an intrauterine gestational sac with pole. cardiac activity is present with heart rate 158 bpm. Based on the crown-rump length, the estimated gestational age is 7 weeks 1 day corresponding to DAMIEN 10/08/2019. Normal-appearing yolk sac is present. No subchorionic bleed. Cervix is closed measuring 3.2 cm long. Measurement variability in dating: +/- 4 weeks by LMP, +/- 7 days by mean sac diameter (use before 6 weeks gestation if crown-rump length not able to be measured), +/- 5 days by crown-rump length (up to 8 weeks 6 days gestation), +/- 7 days by crown-rump length (up to 13 weeks 6 days gestation). Maternal organs: Ovaries are grossly normal. Limited images through the kidneys demonstrate no hydronephrosis. IMPRESSION: 1. A single living intrauterine gestation with an estimated gestational age of 7 weeks 1 day corresponding to ultrasound DAMIEN of 10/10/2019. 2. No abnormality is seen on ultrasound. MDM Narrative Medical decision making narrative: The patient is a 23-year-old female who presents with a chief complaint of transient right upper quadrant pain. She has already had a cholecystectomy, lab work is reassuring with no leukocytosis, no elevated bilirubin amylase or lipase. Her urine is clean, no nitrates, leukocyte esterase or bacteria. The patient is nontoxic on exam, afebrile and hemodynamically stable throughout her stay in the emergency department. I did give her Zofran for nausea, which she states is likely related to her . I discussed at length the possibility of ligament and muscle pain during . This might be likely for this patient at this point time. Encouraged conservative measures such as Tylenol ice and or heat as needed. Encouraged follow-up with PCP as well as OBGYN. Discussed at length return precautions the emergency department including abdominal pain with fever, acute concerns. Patient had a normal ultrasound of the fetus the emergency department. Patient states understanding return precautions as well as follow-up care. No questions or concerns upon discharge <Terry Cobos, - Last Filed: 02/20/19 17:35> Lab Data Labs: Lab Results 02/20/19 02/20/19 02/20/19 Range/Units 12:00 12:00 12:00 WBC 11.0 (4.5-11.0) X10^3/uL RBC 5.13 (4.0-5.2) X10^6/uL Hgb 13.4 (12.0-16.0) g/dL Hct 41.2 (36-46) % MCV 80.2 (80-100) fL MCH 26.2 (26-34) PG MCHC 32.7 (30-36) % RDW 15.0 H (11.6-14.8) % Plt Count 295 (150-400) X10^3/uL Neut % (Auto) 64.0 (50-75) % Lymph % (Auto) 26.7 (25-40) % [place] % (Auto) 7.1 (3-14) % Eos % (Auto) 1.9 L (2-4) % Baso % (Auto) 0.3 (0-2) % Neut # (Auto) 7000 (5251-7610) /uL Lymph # (Auto) 2900 (4953-5988) /uL [place] # (Auto) 800 (0-900) /uL Eos # (Auto) 200 (0-450) /uL Baso # (Auto) 0 (0-100) /uL Sodium 140 (137-145) mmol/L Potassium 3.9 (3.4-5.1) mmol/L Chloride 103 (98-107) mmol/L Carbon Dioxide 26 (22-32) mmol/L BUN 12 (7-17) mg/dL Creatinine 0.60 (0.52-1.04) mg/dL Estimated GFR > 60.0 (>60) mL/min BUN/Creatinine Ratio 20.0 (6-22) Glucose 92 (70-100) mg/dL Calcium 9.4 (8.4-10.2) mg/dL Total Bilirubin 0.5 (0.2-1.3) mg/dL AST 27 (14-36) IU/L ALT 25 (9-52) IU/L Alkaline Phosphatase 80 (38-126) U/L Total Protein 7.5 (6.3-8.2) g/dL Albumin 4.0 (3.5-5.0) g/dL Globulin 3.5 (1.7-4.1) g/dL Albumin/Globulin Ratio 1.1 (1.0-2.8) Amylase 66 (30-110) U/L Lipase 30 (23-300) U/L HCG, Quant mIU/mL Serum , Qual Positive H (Negative) Blood Type 02/20/19 02/20/19 Range/Units 12:00 12:00 WBC (4.5-11.0) X10^3/uL RBC (4.0-5.2) X10^6/uL Hgb (12.0-16.0) g/dL Hct (36-46) % MCV (80-100) fL MCH (26-34) PG MCHC (30-36) % RDW (11.6-14.8) % Plt Count (150-400) X10^3/uL Neut % (Auto) (50-75) % Lymph % (Auto) (25-40) % [place] % (Auto) (3-14) % Eos % (Auto) (2-4) % Baso % (Auto) (0-2) % Neut # (Auto) (5267-5603) /uL Lymph # (Auto) (0329-5013) /uL [place] # (Auto) (0-900) /uL Eos # (Auto) (0-450) /uL Baso # (Auto) (0-100) /uL Sodium (137-145) mmol/L Potassium (3.4-5.1) mmol/L Chloride (98-107) mmol/L Carbon Dioxide (22-32) mmol/L BUN (7-17) mg/dL Creatinine (0.52-1.04) mg/dL Estimated GFR (>60) mL/min BUN/Creatinine Ratio (6-22) Glucose (70-100) mg/dL Calcium (8.4-10.2) mg/dL Total Bilirubin (0.2-1.3) mg/dL AST (14-36) IU/L ALT (9-52) IU/L Alkaline Phosphatase (38-126) U/L Total Protein (6.3-8.2) g/dL Albumin (3.5-5.0) g/dL Globulin (1.7-4.1) g/dL Albumin/Globulin Ratio (1.0-2.8) Amylase (30-110) U/L Lipase (23-300) U/L HCG, Quant 73284 mIU/mL Serum , Qual (Negative) Blood Type O Positive Point of care testing: Point of Care Testing Test Results Positive Urine Dip Bedside Urine Glucose Negative Bedside Urine Bilirubin - Negative Bedside Urine Ketone - Negative Urine Specific [place] 1.020 Bedside Urine Occult Blood - Negative Bedside Urine pH 6.0 Bedside Urine Protein +/- 15 Bedside Urine Urobilinogen - Negative Bedside Urine Nitrite - Negative Bedside Urine Leukocytes - Negative Esterase Discharge Plan Departure Patient Disposition: Home Clinical Impression: Abdominal pain Qualifiers: Abdominal location: right upper quadrant Qualified Code(s): R10.11 - Right upper quadrant pain Discharge Date/Time: 02/20/19 14:16 Instructions: DI for Abdominal Pain-Adult, DI for Abdominal Pain -- Early Activity Restrictions/Additional Instructions: Today we checked your urine, lab work and did an ultra sound. Everything came back within normal limits. Please follow up with primary care provider/OBGYN. We suggest conservative measures for pain such as Tylenol as needed and able. Please come back to the emergency department for any acute concerns such as severe abdominal pain, concern of heart attack stroke etc Prescriptions: New ondansetron 4 mg tablet,disintegrating 4 mg PO Q6H PRN (Reason: nausea and vomiting) Qty: 20 RF: 0 No Action sertraline 25 mg tablet 50 mg PO DAILY Qty: 180 RF: 1 bupropion HCl 150 mg tablet sustained-release 12 hr 150 mg PO DAILY Qty: 30 RF: 1 Unisom (doxylamine) 25 mg Tablet 12.5 mg PO BEDTIME PRN (Reason: Sleep) RF: 0 PNV cmb#95-ferrous fumarate-FA [] 28 mg iron- 800 mcg Tablet 1 tab PO DAILY RF: 0 Vitamin B-6 1 tab PO DAILY RF: 0 Referrals: Brianna Laws DO [Primary Care Provider] - <Terry Cobos DO - Last Filed: 02/20/19 17:35> Sign Out Provider Sign Out Attestation: I was available for consultation during this patient's emergency department encounter
[2019-02-20 12:00] VITALS: BP 112/76; PULSE 76; RESP 16; O2SAT 98
[2019-02-20] MEDS: ONDANSETRON 4 MG ODT SL (12:05)
[2019-02-20 12:07] LABS: Add Manual Diff / Slide Review NO; Basophils Absolute Auto 0 /uL (0-100); Basophils Percent Auto 0.3 % (0-2); Eosinophils Absolute Auto 200 /uL (0-450); Eosinophils Percent Auto 1.9 % (2-4); Hematocrit 41.2 % (36-46); Hemoglobin 13.4 g/dL (12.0-16.0); Lymphocytes Absolute Auto 2900 /uL (1100-4500); Lymphocytes Percent Auto 26.7 % (25-40); Mean Corpuscular HGB Conc 32.7 % (30-36); Mean Corpuscular Hemoglobin 26.2 PG (26-34); Mean Corpuscular Volume 80.2 fL (80-100); Monocytes Absolute Auto 800 /uL (0-900); Monocytes Percent Auto 7.1 % (3-14); Neutrophils Absolute Auto 7000 /uL (1500-7000); Platelet Count 295 X10^3/uL (150-400); Red Blood Cell Count 5.13 X10^6/uL (4.0-5.2)
[2019-02-20 12:18] LABS: Alanine Aminotransferase 25 IU/L (9-52); Albumin Globulin Ratio 1.1 (1.0-2.8); Alkaline Phosphatase 80 U/L (38-126); Amylase 66 U/L (30-110); Aspartate Aminotransferase 27 IU/L (14-36); Bilirubin Total 0.5 mg/dL (0.2-1.3); Blood Urea Nitrogen 12 mg/dL (7-17); Calcium 9.4 mg/dL (8.4-10.2); Carbon Dioxide 26 mmol/L (22-32); Chloride 103 mmol/L (98-107); Estimated Glomerular Filt Rate > 60.0 mL/min (>60); Globulin 3.5 g/dL (1.7-4.1); Glucose 92 mg/dL (70-100); HEMOLYSIS < 15 (0-50); Lipase 30 U/L (23-300); Potassium 3.9 mmol/L (3.4-5.1); Sodium 140 mmol/L (137-145); Total Protein 7.5 g/dL (6.3-8.2)
[2019-02-20 12:24] LABS: Pregnancy Test Serum,Qual Positive (Negative)
[2019-02-20 13:29] LABS: HCG Quantitative /Beta subunit 85439 mIU/mL
[2019-02-20 13:30] VITALS: BP 105/73; PULSE 77; RESP 16; O2SAT 99
[2019-02-20] MEDS: ACETAMINOPHEN 325 MG TABLET 975 MG PO (13:46)
[2019-02-20] MEDS: LIDOCAINE PATCH 1 EACH ADH..PATCH TOP (13:47)
== END 2019-02-20 14:16 | disposition home or self-care (01) ==
PROVIDERS: Emergency Provider Nurse Practitioner Family; PCP Family Medicine
DX: O26.891 Other specified pregnancy related conditions, first trimester (principal); R10.11 Right upper quadrant pain; Z3A.01 Less than 8 weeks gestation of pregnancy
CPT/HCPCS: 36415; 76801; 80053; 81003; 81025; 82150; 83690; 84702; 84703; 85025; 86900; 86901; 99282; 99284

== ENCOUNTER 2020-11-08 16:59 | Emergency (ER) | payer SELFPAY ==
[2020-11-08 17:13] VITALS: BP 116/72; PULSE 89; RESP 22; TEMP 36.6; O2SAT 100
--- NOTE | 2020-11-08 18:12 | DI.US.S_ITS ---
PROCEDURE: US OB LIMITED INDICATIONS: 16 weeks/ cramping OUTSIDE/PRIOR DATING DATA: Last menstrual period (LMP): 07/16/2020. LMP-based estimated date of delivery (DAMIEN): 04/22/2021 . First dating scan (date and location): 11/08/2020 . Estimated date of delivery (DAMIEN) from first dating scan: 04/21/2021 . TECHNIQUE: Real-time scanning was performed of the fetus, with image documentation and biometric measurements. Endovaginal scanning also performed for evaluation of the placenta. COMPARISON: None. FINDINGS: General: A single living intrauterine gestation is present. Presentation: Variable. Placenta: Placental position is posterior, with the inferior margin overlying the internal cervical os compatible with placenta previa. Amniotic fluid: Appears grossly within normal limits. heart rate: 153 beats per minute. Maternal cervical canal: 4.7 cm long. Normal lower limit is 2.5 cm. biometrics: Biparietal diameter: 3.3 cm, 16 weeks 1 day Head circumference: 13.1 cm, 16 weeks 5 days Abdominal circumference: 11.4 cm, 17 weeks 0 days Femur length: 2.1 cm, 16 weeks 2 days Estimated gestational age from initial scan: 16 weeks 3 days by report Composite gestational age from present scan: 16 weeks 4 days Measurement variability for biometric dating: +/- 7 days from 14 weeks to 15 weeks 6 days gestation, +/- 10 days from 16 weeks to 21 weeks 6 days gestation, +/- 2 weeks from 22 weeks to 27 weeks 6 days gestation, +/- 3 weeks for 28 weeks gestation or later. weight reference: 4500 g or EFW >90/95% is considered macrosomia or large for gestational age. EFW <10% is small for gestational age. EFW 5% or less is considered intra-uterine growth restriction. Other: Maternal ovaries not visualized. IMPRESSION: 1. Single living intrauterine with composite gestational age of 16 weeks 4 days. 2. Placenta previa demonstrated. Recommend attention on follow-up. Dictated by: Ector Donnelly M.D. on 11/08/2020 at 19:52 Approved by: Ector Donnelly M.D. on 11/08/2020 at 19:57
[2020-11-08 20:27] LABS: Add Manual Diff / Slide Review NO; Basophils Absolute Auto 0 /uL (0-100); Basophils Percent Auto 0.4 % (0-2); Eosinophils Absolute Auto 300 /uL (0-450); Eosinophils Percent Auto 2.2 % (2-4); Hematocrit 38.9 % (36-46); Hemoglobin 12.9 g/dL (12.0-16.0); Lymphocytes Absolute Auto 2800 /uL (1100-4500); Mean Corpuscular HGB Conc 33.2 % (30-36); Mean Corpuscular Hemoglobin 27.1 PG (26-34); Mean Corpuscular Volume 81.7 fL (80-100); Monocytes Absolute Auto 700 /uL (0-900); Monocytes Percent Auto 5.2 % (3-14); Neutrophils Absolute Auto 9400 /uL (1500-7000); Neutrophils Percent Auto 71.2 % (50-75); Platelet Count 243 X10^3/uL (150-400); Red Blood Cell Count 4.76 X10^6/uL (4.0-5.2); Red Cell Distribution Width 14.6 % (11.6-14.8); White Blood Cell Count 13.2 X10^3/uL (4.5-11.0)
--- NOTE | 2020-11-08 20:31 | ED.GENADULT ---
HPI - General Adult General Chief complaint: Abdominal Pain Stated complaint: 16 WKS BAD CRAMPS FAINT Time Seen by Provider: 11/08/20 20:25 Source: patient Mode of arrival: Ambulatory Limitations: no limitations History of Present Illness HPI narrative: Patient is a 24-year-old female. She is a at approximately 16 weeks EGA. She has yet to see OB during this . She is here because she is having cramping and vaginal discharge and also has some urinary symptoms. She has not tried anything for symptoms prior to arrival. She states that she has no concern about any sexually transmitted diseases. Not having any vaginal bleeding. No urinary symptoms. Some nausea but no vomiting. Related Data Home Medications Medication Instructions Recorded Confirmed PNV cmb#95-ferrous fumarate-FA 1 tab PO DAILY 02/20/19 02/20/19 [] Vitamin B-6 1 tab PO DAILY 02/20/19 02/20/19 doxylamine succinate [Unisom 12.5 mg PO BEDTIME PRN 02/20/19 02/20/19 (doxylamine)] Previous Rx's Medication Instructions Recorded bupropion HCl 150 mg tablet,12 hr 150 mg PO DAILY #30 each 09/19/18 sustained-release sertraline 25 mg tablet 50 mg PO DAILY #180 tab 10/09/18 ondansetron 4 mg PO Q6H PRN #20 tab 02/20/19 miconazole nitrate [Miconazole-3] See Rx Instructions .ROUTE 11/08/20 .COMPLEX #24 pkg Allergies Allergy/AdvReac Type Severity Reaction Status Date / Time latex [LATEX] Allergy Mild rash Verified 08/21/18 11:08 Review of Systems Constitutional Constitutional: Denies fever(s) Cardiovascular Cardiovascular: Reports system reviewed and no additional complaints, except as documented Respiratory Respiratory: Reports system reviewed and no additional complaints, except as documented Gastrointestinal Gastrointestinal: Reports system reviewed and no additional complaints, except as documented, Reports abdominal pain, Denies constipation, Denies diarrhea, Reports nausea and Denies vomiting Genitourinary Genitourinary: Denies dysuria Genitourinary: Denies abnormal vaginal bleeding, Denies dysuria and Reports vaginal discharge Musculoskeletal Musculoskeletal: Reports system reviewed and no additional complaints, except as documented Integumentary/Breasts Skin/Breast: Reports system reviewed and no additional complaints, except as documented Neurologic Neurologic: Reports system reviewed and no additional complaints, except as documented Hematologic/Lymphatic On Anticoagulants: No Allergic/Immunologic Allergic/Immunologic: Reports system reviewed and no additional complaints, except as documented Patient History Medical History 1 para 1 Normal Papanicolaou smear Surgical History Anesthesia History of third molar tooth extraction Family History (Updated 05/31/17 @ 00:00 by Conversion Provider) Father Age: 62 Diabetes mellitus Mother Age: 48 Bipolar disorder with depression Sister Age: 28 Bipolar 1 disorder Brother No problems noted. Social History household members: family Smoking Status: Never smoker Smoking Status: Never smoker alcohol intake frequency: a few times a week Substance Use Type: does not use Exam Initial Vital Signs Initial Vital Signs: Vital Signs Temperature 97.9 F 11/08/20 17:13 Pulse Rate 89 11/08/20 17:13 Respiratory Rate 22 11/08/20 17:13 Blood Pressure 116/72 11/08/20 17:13 Pulse Oximetry 100 11/08/20 17:13 Const General: cooperative and comfortable Limitations: mental status not altered HENMT Head: normal to inspection and normocephalic Resp Effort & Inspection: normal respiratory effort Cardio Rate: regular rate GI Inspection: non-distended Palpation: soft Speculum Exam - Vagina: normal appearance of the vagina Speculum Exam - Cervix: closed and no lesions Back/Spine/Pelvis Back: No CVA tenderness Skin Lesions: no lesions Rashes: no rashes Neuro General: patient alert and patient awake Cognition: normal cognition Speech: speech normal Extrem General: normal to inspection and capillary refill normal Psych Appearance: grossly normal and well kempt Course Orders Ordered: ED Orders 11/08/20 20:13 ABO RH Type Stat Complete Blood Count AUTO DIFF Stat Comprehensive Metabolic Panel Stat HCG Quantitative /Beta subunit Stat 11/08/20 21:00 Genital Culture Stat SY Prep Stat Wet Prep Tric BV Mariluz Stat Discontinued Medications Acetaminophen (Acetaminophen 325 Mg Tablet) 650 mg PO NOW ONE Stop: 11/08/20 21:53 Last Admin: 11/08/20 22:01 Dose: 650 mg Documented by: KGALLAG Vital Signs Vital signs: Vital Signs - 8 hr 11/08/20 22:04 Pulse Rate 97 H Respiratory Rate 15 Blood Pressure 126/64 Pulse Oximetry 100 Medical Decision Making Lab Data Lab results reviewed: Yes I reviewed the patient's lab results. Result diagrams: 11/08/20 20:13 11/08/20 20:13 Labs: Lab Results 11/08/20 11/08/20 11/08/20 Range/Units 20:13 20:13 20:13 WBC 13.2 H (4.5-11.0) X10^3/uL RBC 4.76 (4.0-5.2) X10^6/uL Hgb 12.9 (12.0-16.0) g/dL Hct 38.9 (36-46) % MCV 81.7 (80-100) fL MCH 27.1 (26-34) PG MCHC 33.2 (30-36) % RDW 14.6 (11.6-14.8) % Plt Count 243 (150-400) X10^3/uL Neut % (Auto) 71.2 (50-75) % Lymph % (Auto) 21.0 L (25-40) % [place]ahan % (Auto) 5.2 (3-14) % Eos % (Auto) 2.2 (2-4) % Baso % (Auto) 0.4 (0-2) % Neut # (Auto) 9400 H (0310-9594) /uL Lymph # (Auto) 2800 (7404-8644) /uL Callahan # (Auto) 700 (0-900) /uL Eos # (Auto) 300 (0-450) /uL Baso # (Auto) 0 (0-100) /uL Sodium 138 (137-145) mmol/L Potassium 3.6 (3.4-5.1) mmol/L Chloride 104 (98-107) mmol/L Carbon Dioxide 26 (22-32) mmol/L BUN 5 L (7-17) mg/dL Creatinine 0.43 L (0.52-1.04) mg/dL Estimated GFR > 60.0 (>60) mL/min BUN/Creatinine Ratio 11.6 (6-22) Glucose 103 H (70-100) mg/dL Calcium 9.7 (8.4-10.2) mg/dL Total Bilirubin 0.3 (0.2-1.3) mg/dL AST 19 (14-36) IU/L ALT 8 (<35) IU/L Alkaline Phosphatase 83 (38-126) U/L Total Protein 7.3 (6.3-8.2) g/dL Albumin 3.8 (3.5-5.0) g/dL Globulin 3.5 (1.7-4.1) g/dL Albumin/Globulin Ratio 1.1 (1.0-2.8) HCG, Quant 67890 mIU/mL Blood Type O Positive Urine Dip Bedside Urine Glucose Negative Bedside Urine Bilirubin - Negative Bedside Urine Ketone - Negative Urine Specific [place] 1.030 Bedside Urine Occult Blood - Negative Bedside Urine pH 6.0 Bedside Urine Protein - Negative Bedside Urine Urobilinogen - Negative Bedside Urine Nitrite - Negative Bedside Urine Leukocytes - Negative Esterase Point of care testing: Urine Dip Bedside Urine Glucose Negative Bedside Urine Bilirubin - Negative Bedside Urine Ketone - Negative Urine Specific [place] 1.030 Bedside Urine Occult Blood - Negative Bedside Urine pH 6.0 Bedside Urine Protein - Negative Bedside Urine Urobilinogen - Negative Bedside Urine Nitrite - Negative Bedside Urine Leukocytes - Negative Esterase Imaging Data US - OB: Radiologist's Impression: [address] [id number] ReportSigned Patient: Ortega Yee MMR#: [id number]: [id number]:[id number]/Sex: 24 / FDate of Service: 11/08/20Loc: EDAccession Number: [id number] Procedure: US OB limited Ordering Provider: Terry Cobos D.O. PROCEDURE: US OB LIMITED INDICATIONS: 16 weeks/ cramping OUTSIDE/PRIOR DATING DATA: Last menstrual period (LMP): 07/16/2020. LMP-based estimated date of delivery (DAMIEN): 04/22/2021 . First dating scan (date and location): 11/08/2020 . Estimated date of delivery (DAMIEN) from first dating scan: 04/21/2021 . TECHNIQUE: Real-time scanning was performed of the fetus, with image documentation and biometric measurements. Endovaginal scanning also performed for evaluation of the placenta. COMPARISON: None. FINDINGS: General: A single living intrauterine gestation is present. Presentation: Variable. Placenta: Placental position is posterior, with the inferior margin overlying the internal cervical os compatible with placenta previa. Amniotic fluid: Appears grossly within normal limits. heart rate: 153 beats per minute. Maternal cervical canal: 4.7 cm long. Normal lower limit is 2.5 cm. biometrics: Biparietal diameter: 3.3 cm, 16 weeks 1 day Head circumference: 13.1 cm, 16 weeks 5 days Abdominal circumference: 11.4 cm, 17 weeks 0 days Femur length: 2.1 cm, 16 weeks 2 days Estimated gestational age from initial scan: 16 weeks 3 days by report Composite gestational age from present scan: 16 weeks 4 days Measurement variability for biometric dating: +/- 7 days from 14 weeks to 15 weeks 6 days gestation, +/- 10 days from 16 weeks to 21 weeks 6 days gestation, +/- 2 weeks from 22 weeks to 27 weeks 6 days gestation, +/- 3 weeks for 28 weeks gestation or later. weight reference: 4500 g or EFW >90/95% is considered macrosomia or large for gestational age. EFW <10% is small for gestational age. EFW 5% or less is considered intra-uterine growth restriction. Other: Maternal ovaries not visualized. IMPRESSION: 1. Single living intrauterine with composite gestational age of 16 weeks 4 days. 2. Placenta previa demonstrated. Recommend attention on follow-up. Dictated by: Ector Donnelly M.D. on 11/08/2020 at 19:52 Approved by: Ector Donnelly M.D. on 11/08/2020 at 19:57 MDM Narrative Medical decision making narrative: Patient does have a leukocytosis. Her ultrasound shows a live intrauterine at 16 weeks and 1 day. Her urinalysis does not show any signs of an infection. Pelvic exam was performed with nursing staff at bedside. Was positive for yeast. There is no clue cells. Will send home with topical treatment for this. She was informed of the findings of the ultrasound in her lab reports. She was given return precautions and follow-up instructions. She expressed understanding and agreement. Discharge Plan Departure Patient Disposition: Home Clinical Impression: , Vaginal yeast infection Instructions: DI for Vaginal Yeast Infection Activity Restrictions/Additional Instructions: I do recommend that you may contact with an OB provider. It is important that you have proper care. Continue to take your vitamins. Take the medication to treat the yeast infection as directed. Because of we will have to use a topical treatment. Return to the emergency department for any new or worsening symptoms Prescriptions: New miconazole nitrate [Miconazole-3] 4 % (200 mg)- 2 % (9 gram) comb pack,prefill appl, cream See Rx Instructions .ROUTE .COMPLEX Qty: 24 RF: 0 No Action sertraline 25 mg tablet 50 mg PO DAILY Qty: 180 RF: 1 bupropion HCl 150 mg tablet sustained-release 12 hr 150 mg PO DAILY Qty: 30 RF: 1 Unisom (doxylamine) 25 mg Tablet 12.5 mg PO BEDTIME PRN (Reason: Sleep) RF: 0 PNV cmb#95-ferrous fumarate-FA [] 28 mg iron- 800 mcg Tablet 1 tab PO DAILY RF: 0 Vitamin B-6 1 tab PO DAILY RF: 0 ondansetron 4 mg tablet,disintegrating 4 mg PO Q6H PRN (Reason: nausea and vomiting) Qty: 20 RF: 0 Referrals: Brianna Laws DO [Primary Care Provider] -
[2020-11-08 20:42] LABS: Alanine Aminotransferase 8 IU/L (<35); Albumin 3.8 g/dL (3.5-5.0); Albumin Globulin Ratio 1.1 (1.0-2.8); Alkaline Phosphatase 83 U/L (38-126); Aspartate Aminotransferase 19 IU/L (14-36); BUN Creatinine Ratio 11.6 (6-22); Bilirubin Total 0.3 mg/dL (0.2-1.3); Blood Urea Nitrogen 5 mg/dL (7-17); Calcium 9.7 mg/dL (8.4-10.2); Carbon Dioxide 26 mmol/L (22-32); Chloride 104 mmol/L (98-107); Estimated Glomerular Filt Rate > 60.0 mL/min (>60); Globulin 3.5 g/dL (1.7-4.1); Glucose 103 mg/dL (70-100); HEMOLYSIS < 15 (0-50); Potassium 3.6 mmol/L (3.4-5.1); Sodium 138 mmol/L (137-145); Total Protein 7.3 g/dL (6.3-8.2)
[2020-11-08 21:24] LABS: HCG Quantitative /Beta subunit 19076 mIU/mL
[2020-11-08] MEDS: ACETAMINOPHEN 325 MG TABLET 650 MG PO (22:01)
[2020-11-08 22:04] VITALS: BP 126/64; PULSE 97; RESP 15; O2SAT 100
== END 2020-11-08 22:04 | disposition home or self-care (01) ==
PROVIDERS: Emergency Provider Emergency Medicine; PCP Family Medicine
DX: O26.92 Pregnancy related conditions, unspecified, second trimester (principal); B37.3 Candidiasis of vulva and vagina; R11.0 Nausea; Z3A.16 16 weeks gestation of pregnancy
CPT/HCPCS: 36415; 76815; 76817; 80053; 81003; 84702; 85025; 86900; 86901; 87070; 87205; 87210; 87220; 99284